=== PATIENT | female | born 1975 | race Caucasian/White ===

== ENCOUNTER → 2021-01-12 16:58 | Outpatient (CLI) | payer OTHER, SELFPAY ==
--- NOTE | 2021-01-12 17:02 | DI.MG.S_ITS ---
BILATERAL DIGITAL SCREENING MAMMOGRAM 3D/2D WITH CAD: 01/12/2021 CLINICAL: Routine screening. Comparison is made to exams dated: 11/25/2017 mammogram and 11/25/2017 ultrasound - outside. The tissue of both breasts is heterogeneously dense. This may lower the sensitivity of mammography. Current study was also evaluated with a Computer Aided Detection (CAD) system. There are benign cysts in both breasts. Multiple simple cysts are seen on 2018 ultrasound. Many of these cysts are decreased in size. No significant masses, calcifications, or other findings are seen in either breast. IMPRESSION: BENIGN There is no mammographic evidence of malignancy. Multiple bilateral cysts. A 1 year screening mammogram is recommended. This exam was interpreted at Station ID: [id number]. NOTE: For mammograms, a report in lay terms will be sent to the patient. Approximately 15% of breast malignancies will not be visualized mammographically. In the management of a palpable breast mass, a negative mammogram must not discourage biopsy of a clinically suspicious lesion. Electronically Signed By: Channing Kyle M.D. slc/:01/12/2021 17:42:04 letter sent: Normal Exam ACR BI-RADS Category 2: Benign Finding(s) 3342F
== END ==
PROVIDERS: PCP Family Medicine; Referring Provider Family Medicine; Visit Provider Family Medicine
DX: Z12.31 Encounter for screening mammogram for malignant neoplasm of breast (principal)
CPT/HCPCS: 77063; 77067

== ENCOUNTER → 2022-02-08 08:08 | Outpatient (CLI) | payer OTHER, SELFPAY ==
--- NOTE | 2022-02-08 | DI.MG.S_ITS ---
BILATERAL DIGITAL SCREENING MAMMOGRAM 3D/2D WITH CAD: 02/08/2022 CLINICAL: Routine screening. Comparison is made to exams dated: 01/12/2021 mammogram - [facility], 11/25/2017 mammogram, and 11/25/2017 ultrasound - outside. Both breasts are heterogeneously dense, which may obscure small masses (category c / 51-75% glandular tissue). Current study was also evaluated with a Computer Aided Detection (CAD) system. There are benign cysts in both breasts. No significant masses, calcifications, or other findings are seen in either breast. There has been no significant interval change. IMPRESSION: BENIGN There is no mammographic evidence of malignancy. A 1 year screening mammogram is recommended. Based on the Tyrer Cuzick model (a risk assessment model) the patient's lifetime risk is 7.7% and her 10 year risk is 1.6%. According to the ACR, ACS, and NCCN guidelines, an annual breast MRI exam along with mammogram is recommended if the patient's lifetime risk is 20% or greater. This exam was interpreted at Station ID: [id number]. NOTE: For mammograms, a report in lay terms will be sent to the patient. Approximately 15% of breast malignancies will not be visualized mammographically. In the management of a palpable breast mass, a negative mammogram must not discourage biopsy of a clinically suspicious lesion. Electronically Signed By: Edgar jackson/david:02/08/2022 13:14:44 letter sent: Normal Exam ACR BI-RADS Category 2: Benign Finding(s) 3342F
[2022-02-08 09:53] LABS: Add Manual Diff / Slide Review NO; Basophils Absolute Auto 100 /uL (0-100); Basophils Percent Auto 0.6 % (0-2); Eosinophils Absolute Auto 100 /uL (0-450); Eosinophils Percent Auto 1.3 % (2-4); Hematocrit 40.3 % (36-46); Hemoglobin 13.6 g/dL (12.0-16.0); Lymphocytes Absolute Auto 3100 /uL (1100-4500); Lymphocytes Percent Auto 27.9 % (25-40); Mean Corpuscular HGB Conc 33.7 % (30-36); Mean Corpuscular Hemoglobin 30.5 PG (26-34); Mean Corpuscular Volume 90.7 fL (80-100); Monocytes Absolute Auto 800 /uL (0-900); Monocytes Percent Auto 7.3 % (3-14); Neutrophils Absolute Auto 6900 /uL (1500-7000); Neutrophils Percent Auto 62.9 % (50-75); Platelet Count 311 X10^3/uL (150-400); Red Blood Cell Count 4.44 X10^6/uL (4.0-5.2); Red Cell Distribution Width 13.1 % (11.6-14.8)
[2022-02-08 10:10] LABS: Alanine Aminotransferase 30 IU/L (<35); Albumin 4.5 g/dL (3.5-5.0); Albumin Globulin Ratio 1.5 (1.0-2.8); Alkaline Phosphatase 59 U/L (38-126); Aspartate Aminotransferase 26 IU/L (14-36); BUN Creatinine Ratio 10.5 (6-22); Bilirubin Total 0.6 mg/dL (0.2-1.3); Blood Urea Nitrogen 9 mg/dL (7-17); Calcium 9.6 mg/dL (8.4-10.2); Carbon Dioxide 24 mmol/L (22-32); Chloride 100 mmol/L (98-107); Cholesterol 237 mg/dL (140-199); Estimated Glomerular Filt Rate > 60 mL/min (>60); Globulin 3.1 g/dL (1.7-4.1); Glucose 91 mg/dL (70-100); HDL Cholesterol 59 mg/dL (40-60); HEMOLYSIS < 15 (0-50); LDL Cholesterol Calculated 143 mg/dL (<100); Potassium 4.4 mmol/L (3.4-5.1); Sodium 136 mmol/L (137-145); Total Protein 7.6 g/dL (6.3-8.2); Triglycerides 173 mg/dL (35-150)
[2022-02-08 10:39] LABS: TSH w/ Reflex to FT4 1.83 uIU/mL (0.47-4.68)
[2022-02-08 11:20] LABS: Creatinine Urine Random 94.2 mg/dL
[2022-02-08 11:33] LABS: Microalbumi Creatinin Ratio Ur 9.5 ug/mg CR (<30); Microalbumin Urine Random 0.9 mg/dL (0-1.6)
== END ==
PROVIDERS: PCP Family Medicine; Referring Provider Family Medicine; Visit Provider Family Medicine
DX: Z12.31 Encounter for screening mammogram for malignant neoplasm of breast; Z13.220 Encounter for screening for lipoid disorders; Z12.11 Encounter for screening for malignant neoplasm of colon; I10 Essential (primary) hypertension; G47.429 Narcolepsy in conditions classified elsewhere without cataplexy; F17.200 Nicotine dependence, unspecified, uncomplicated
CPT/HCPCS: 36415; 77063; 77067; 80053; 80061; 82043; 82570; 84443; 85025

== ENCOUNTER → 2023-02-14 | Outpatient (CLI) | payer OTHER, SELFPAY ==
--- NOTE | 2023-02-14 14:35 | DI.MG.S_ITS ---
BILATERAL DIGITAL SCREENING MAMMOGRAM 3D/2D WITH CAD: 02/14/2023 CLINICAL: Routine screening. Comparison is made to exams dated: 02/08/2022 mammogram, 01/12/2021 mammogram - [facility], and 11/25/2017 mammogram - outside. Both breasts are heterogeneously dense, which may obscure small masses (category c / 51-75% glandular tissue). Current study was also evaluated with a Computer Aided Detection (CAD) system. There are benign appearing masses in both breasts. There is a calcification in the right breast posterior depth superior region seen on the mediolateral oblique view only. This is more prominent. There is a mass in the left breast at 1 o'clock posterior depth. This is more prominent. No other significant masses or calcifications are seen in either breast. IMPRESSION: INCOMPLETE: NEEDS ADDITIONAL IMAGING EVALUATION The calcification in the right breast posterior depth superior region seen on the mediolateral oblique view only is indeterminate. Additional views are recommended. The mass in the left breast at 1 o'clock posterior depth resembles a cyst and is indeterminate. Additional views with possible ultrasound are recommended. Based on the Tyrer Cuzick model (a risk assessment model) the patient's lifetime risk is 11.6% and her 10 year risk is 2.6%. According to the ACR, ACS, and NCCN guidelines, an annual breast MRI exam along with mammogram is recommended if the patient's lifetime risk is 20% or greater. This exam was interpreted at Station ID: [id number]. NOTE: For mammograms, a report in lay terms will be sent to the patient. Approximately 15% of breast malignancies will not be visualized mammographically. In the management of a palpable breast mass, a negative mammogram must not discourage biopsy of a clinically suspicious lesion. Electronically Signed By: George Chairez M.D. lc/:02/20/2023 07:54:03 letter sent: Additional Imaging Needed ACR BI-RADS Category 0: Incomplete 3340F
== END ==
LOC: MAMMO 14:34
PROVIDERS: PCP Family Medicine; Referring Provider Family Medicine; Visit Provider Family Medicine
DX: Z12.31 Encounter for screening mammogram for malignant neoplasm of breast (principal)
CPT/HCPCS: 77063; 77067

== ENCOUNTER → 2023-03-06 13:13 | Outpatient (CLI) | payer OTHER, SELFPAY ==
--- NOTE | 2023-03-06 13:14 | DI.US.S_ITS ---
ULTRASOUND OF LEFT BREAST: 03/06/2023 CLINICAL: Patient returns today to evaluate a focal asymmetry in the left breast. Comparison is made to exams dated: 03/06/2023 mammogram, 02/14/2023 mammogram, 02/08/2022 mammogram, 01/12/2021 mammogram - [facility], 11/25/2017 mammogram, and 11/25/2017 ultrasound - outside. Color flow and real-time ultrasound of the left breast were performed. Carty scale images of the real-time examination were reviewed. There is a possible 0.8 cm x 0.6 cm cluster of complicated cysts in the left breast at 3 o'clock middle depth. There also is a benign 1.6 cm x 1.2 cm x 1.4 cm cyst in the left breast at 3 o'clock anterior depth 6 cm from the nipple. This correlates with mammography findings from screening mammogram. IMPRESSION: PROBABLY BENIGN The possible 0.8 cm and 0.6 cm cluster of complicated cysts in the left breast at 3 o'clock middle depth is probably benign. Follow-up ultrasound in 6 months is recommended. The 1.6 cm x 1.2 cm x 1.4 cm cyst in the left breast at 3 o'clock anterior depth is benign corresponding to the enlarging mammographic mass, no dedicated followup needed. A follow-up RIGHT mammogram (for the calcifications, possibly milk of calcium) and a LEFT ultrasound in 6 months are recommended to demonstrate stability. This exam was interpreted at Station ID: [id number]. Electronically Signed By: George Chairez M.D. lc/:03/06/2023 15:07:12 letter sent: Followup Recommended Ultrasound BI-RADS: 3 Probably benign
--- NOTE | 2023-03-06 13:14 | DI.MG.S_ITS ---
BILATERAL DIGITAL DIAGNOSTIC MAMMOGRAM 3D/2D: 03/06/2023 CLINICAL: Additional evaluation requested from prior study. Comparison is made to exams dated: 02/14/2023 mammogram, 02/08/2022 mammogram, and 01/12/2021 mammogram - [facility]. Both breasts are heterogeneously dense, which may obscure small masses (category c / 51-75% glandular tissue). There are benign appearing masses in both breasts. There are grouped calcification in the right breast posterior depth superior region seen on the mediolateral oblique view only. This is seen in additional views. There is a mass in the left breast at 1 o'clock posterior depth. This is more prominent. No other significant masses or calcifications are seen in either breast. IMPRESSION: INCOMPLETE: NEEDS ADDITIONAL IMAGING EVALUATION The calcification in the right breast posterior depth superior region seen on the mediolateral oblique view only resembles milk of calcium and is probably benign. A follow-up mammogram in 6 months is recommended. The mass in the left breast at 1 o'clock posterior depth resembles a cyst and is indeterminate. An ultrasound is recommended. This is larger than prior and resembles the other presumed benign-appearing cysts. Based on the Tyrer Cuzick model (a risk assessment model) the patient's lifetime risk is 7.8% and her 10 year risk is 1.7%. According to the ACR, ACS, and NCCN guidelines, an annual breast MRI exam along with mammogram is recommended if the patient's lifetime risk is 20% or greater. This exam was interpreted at Station ID: [id number]. NOTE: For mammograms, a report in lay terms will be sent to the patient. Approximately 15% of breast malignancies will not be visualized mammographically. In the management of a palpable breast mass, a negative mammogram must not discourage biopsy of a clinically suspicious lesion. Electronically Signed By: George Chairez M.D. lc/:03/06/2023 15:02:36 ACR BI-RADS Category 0: Incomplete 3340F
== END ==
PROVIDERS: PCP Family Medicine; Referring Provider Family Medicine; Visit Provider Family Medicine
DX: R92.8 Other abnormal and inconclusive findings on diagnostic imaging of breast (principal); R92.1 Mammographic calcification found on diagnostic imaging of breast; N60.02 Solitary cyst of left breast
CPT/HCPCS: 76642; 77066; G0279

== ENCOUNTER → 2023-06-19 08:55 | Outpatient (CLI) | payer OTHER, SELFPAY ==
[2023-06-19 09:38] LABS: Add Manual Diff / Slide Review NO; Basophils Absolute Auto 100 /uL (0-100); Basophils Percent Auto 0.6 % (0-2); Eosinophils Absolute Auto 200 /uL (0-450); Eosinophils Percent Auto 1.8 % (2-4); Hematocrit 37.6 % (36-46); Lymphocytes Absolute Auto 2800 /uL (1100-4500); Mean Corpuscular HGB Conc 34.6 % (30-36); Mean Corpuscular Hemoglobin 31.2 PG (26-34); Mean Corpuscular Volume 90.2 fL (80-100); Monocytes Absolute Auto 700 /uL (0-900); Monocytes Percent Auto 7.4 % (3-14); Neutrophils Absolute Auto 6200 /uL (1500-7000); Neutrophils Percent Auto 62.2 % (50-75); Platelet Count 274 X10^3/uL (150-400); Red Blood Cell Count 4.17 X10^6/uL (4.0-5.2); Red Cell Distribution Width 13.4 % (11.6-14.8)
[2023-06-19 09:49] LABS: Alanine Aminotransferase 48 IU/L (<35); Albumin 4.3 g/dL (3.5-5.0); Albumin Globulin Ratio 1.2 (1.0-2.8); Alkaline Phosphatase 56 U/L (38-126); Aspartate Aminotransferase 36 IU/L (14-36); Bilirubin Total 1.1 mg/dL (0.2-1.3); Blood Urea Nitrogen 12 mg/dL (7-17); Calcium 9.4 mg/dL (8.4-10.2); Carbon Dioxide 24 mmol/L (22-32); Chloride 106 mmol/L (98-107); Cholesterol 212 mg/dL (140-199); Estimated Glomerular Filt Rate > 60 mL/min (>60); Globulin 3.6 g/dL (1.7-4.1); Glucose 98 mg/dL (70-100); HDL Cholesterol 63 mg/dL (40-60); HEMOLYSIS < 15 (0-50); LDL Cholesterol Calculated 125 mg/dL (<100); Potassium 4.3 mmol/L (3.4-5.1); Sodium 137 mmol/L (137-145); Total Protein 7.9 g/dL (6.3-8.2); Triglycerides 122 mg/dL (35-150)
[2023-06-19 10:00] LABS: Creatinine Urine Random 20.8 mg/dL
[2023-06-19 10:16] LABS: Follicle Stimulating Hormone 3.21 mIU/mL
[2023-06-19 10:19] LABS: TSH w/ Reflex to FT4 1.85 uIU/mL (0.47-4.68)
[2023-06-19 10:38] LABS: Microalbumin Urine Random < 0.6 mg/dL (0-1.6)
[2023-06-19 19:58] LABS: Hep C Virus Ab w/Reflex Quant NEGATIVE s/c (NEGATIVE)
[2023-06-21 04:17] LABS: Apolipoprotein B 112 mg/dL (<90)
== END ==
PROVIDERS: PCP Family Medicine; Referring Provider Family Medicine; Visit Provider Family Medicine
DX: I10 Essential (primary) hypertension (principal); G47.419 Narcolepsy without cataplexy; F41.9 Anxiety disorder, unspecified; F17.200 Nicotine dependence, unspecified, uncomplicated; N63.0 Unspecified lump in unspecified breast
CPT/HCPCS: 36415; 80053; 80061; 82043; 82172; 82570; 83001; 84443; 85025; 86803

== ENCOUNTER → 2023-09-26 13:31 | Outpatient (CLI) | payer OTHER, SELFPAY ==
--- NOTE | 2023-09-26 13:32 | DI.US.S_ITS ---
ULTRASOUND OF LEFT BREAST: 09/26/2023 CLINICAL: Follow up from addtional views. Comparison is made to exams dated: 09/26/2023 mammogram, 03/06/2023 ultrasound, 03/06/2023 mammogram, 02/14/2023 mammogram, and 02/08/2022 mammogram - [facility]. Color flow and real-time ultrasound of the left breast were performed on the areas of interest. There are multiple various size simple cysts in the left breast superior lateral quadrant middle depth. These simple cysts are anechoic with well-defined boundaries and posterior acoustic enhancement. These correlate with mammography findings. Color flow imaging demonstrates that there is no vascularity present. IMPRESSION: BENIGN There is no sonographic evidence of malignancy. The multiple various size simple cysts in the left breast are benign. Return to annual mammogram screening schedule is recommended. This exam was interpreted at Station ID: [id number]. Electronically Signed By: Farhana denney/:09/26/2023 14:51:43 letter sent: Normal Exam Ultrasound BI-RADS: 2 Benign
--- NOTE | 2023-09-26 13:33 | DI.MG.S_ITS ---
UNILATERAL RIGHT DIGITAL DIAGNOSTIC MAMMOGRAM 3D/2D: 09/26/2023 CLINICAL: Patient returns for a 6 month follow up of the right breast. Comparison is made to exams dated: 03/06/2023 mammogram, 02/14/2023 mammogram, 02/08/2022 mammogram, and 01/12/2021 mammogram - [facility]. The right breast is heterogeneously dense, which may obscure small masses (category c / 51-75% glandular tissue). There are grouped punctate calcifications in the right breast at 11 o'clock posterior depth. No other significant masses or calcifications are seen in the breast. IMPRESSION: INCOMPLETE: NEEDS ADDITIONAL IMAGING EVALUATION The grouped punctate calcifications in the right breast likely represent early calcification of oil cysts and are probably benign. A follow-up in 6 months is recommended. A targeted ultrasound of the left breast is recommended to evaluate a previously seen finding and will be performed immediately following this exam. Based on the Tyrer Cuzick model (a risk assessment model) the patient's lifetime risk is 7.8% and her 10 year risk is 1.8%. According to the ACR, ACS, and NCCN guidelines, an annual breast MRI exam along with mammogram is recommended if the patient's lifetime risk is 20% or greater. This exam was interpreted at Station ID: [id number]. NOTE: For mammograms, a report in lay terms will be sent to the patient. Approximately 15% of breast malignancies will not be visualized mammographically. In the management of a palpable breast mass, a negative mammogram must not discourage biopsy of a clinically suspicious lesion. Electronically Signed By: Farhana denney/:09/26/2023 14:18:39 ACR BI-RADS Category 0: Incomplete 3340F
== END ==
LOC: MAMMO 13:31
PROVIDERS: PCP Family Medicine; Referring Provider Family Medicine; Visit Provider Family Medicine
DX: R92.8 Other abnormal and inconclusive findings on diagnostic imaging of breast (principal); R92.1 Mammographic calcification found on diagnostic imaging of breast; N60.02 Solitary cyst of left breast; R92.331 Mammographic heterogeneous density, right breast; N63.0 Unspecified lump in unspecified breast; I10 Essential (primary) hypertension; F41.9 Anxiety disorder, unspecified; G47.419 Narcolepsy without cataplexy; F17.200 Nicotine dependence, unspecified, uncomplicated
CPT/HCPCS: 76642; 77065; G0279

== ENCOUNTER → 2024-04-28 13:36 | Outpatient (CLI) | payer OTHER, SELFPAY ==
[2024-04-28 14:23] LABS: COVID-19 CEPHEID 4-PLEX PCR Negative (Negative); Influenza A - CEPHEID Flu A POSITIVE (NEGATIVE); Influenza B - CEPHEID Flu B NEGATIVE (NEGATIVE); Respiratory Syncytial Virus Negative (Negative)
== END ==
PROVIDERS: PCP Family Medicine; Visit Provider Physician Assistant Surgical
DX: R05.9 Cough, unspecified (principal)
CPT/HCPCS: 0241U

== ENCOUNTER → 2024-04-28 13:45 | Outpatient (CLI) | payer OTHER, SELFPAY ==
--- NOTE | 2024-04-28 13:46 | DI.RAD.S_ITS ---
PROCEDURE: XR CHEST 2V INDICATIONS: Cough, wheeze TECHNIQUE: 2 views of the chest were acquired. COMPARISON: None. FINDINGS: Surgical changes and devices: None. Lungs and pleura: Lungs are clear. No pleural effusions or pneumothorax. Mediastinum: Mediastinal contours are normal. Heart size is normal. Bones and chest wall: No suspicious bony abnormalities. Soft tissues appear unremarkable. IMPRESSION: No acute cardiopulmonary abnormality is seen. Dictated by: Sam Alonzo M.D. on 04/28/2024 at 14:48 Approved by: Sam Alonzo M.D. on 04/28/2024 at 14:48
== END ==
PROVIDERS: PCP Family Medicine; Referring Provider Physician Assistant Surgical; Visit Provider Physician Assistant Surgical
DX: R05.9 Cough, unspecified (principal)
CPT/HCPCS: 0241U; 71046

== ENCOUNTER → 2024-07-28 10:10 | Outpatient (CLI) | payer OTHER, SELFPAY ==
--- NOTE | 2024-07-28 10:11 | DI.MG.S_ITS ---
MM diagnostic mammo BI, US breast RT limited: 07/28/2024 BI-RADS: 3 CLINICAL: 48-year old female for bilateral diagnostic mammogram and right diagnostic breast ultrasound. Tyrer-Cuzick lifetime risk of 5.3%. No personal or first-degree family history of breast cancer. The patient reports a palpable abnormality (1 month) in the right breast. PRIOR EXAMS 09/26/2023, 03/06/2023, 02/14/2023, 02/08/2022, 01/12/2021. MAMMOGRAPHY TECHNIQUE: 2D and 3D (tomosynthesis) digital mammographic views obtained, with additional images as needed for full coverage. Current study was also evaluated with a Computer Aided Detection (CAD) system. ULTRASOUND TECHNIQUE Real-time mann scale and color doppler imaging of the area of clinical interest was performed with image documentation. TARGETED Right Breast Ultrasound: Real-time ultrasound exam was performed focused to area of clinical and/or imaging concern. DENSITY C. The breasts are heterogeneously dense, which may obscure small masses. MAMMOGRAPHY FINDINGS Right: Upper Outer at 11:00, Posterior depth: There are probably-benign grouped punctate calcifications. This finding has been stable since February 2023. Right: There are multiple bilateral benign appearing round and oval circumscribed masses, waxing and waning in size. At the area of clinical palpable concern, there is a 2.0 cm oval circumscribed mass at 7 o'clock anterior depth. Left: There are multiple bilateral benign appearing round and oval circumscribed masses, waxing and waning in size. There are no suspicious masses, calcifications, or other findings in the breast. There are no suspicious masses, calcifications, or other findings in the breast. ULTRASOUND FINDINGS Right: Lower Outer at 7:00, 3.0 cm from nipple, measuring 1.8 x 1.8 x 1.9 cm: Correlating with palpable lump there is a simple cyst present. This finding is benign. IMPRESSION: Right (Calcification): Upper Outer at 11:00, Posterior depth * Probably Benign. Left * No evidence of malignancy with benign findings. RECOMMENDATIONS Right: Upper Outer at 11:00, Posterior depth * Followup with diagnostic mammography in one year (Follow up in 12 months to demonstrate over 2-year stability. Patient will be due for bilateral mammogram at that time.). COMMENTS: Findings and recommendations were conveyed to the patient during today's evaluation. OVERALL ASSESSMENT CATEGORY BI-RADS-3: Probably Benign. ELECTRONICALLY SIGNED: Cherelle Magaña M.D. on 07/28/2024 at 12:24:30 PM PT Interpreting Station ID: [id number]
== END ==
PROVIDERS: PCP Family Medicine; Referring Provider Family Medicine; Visit Provider Family Medicine
DX: R92.1 Mammographic calcification found on diagnostic imaging of breast (principal); N63.13 Unspecified lump in the right breast, lower outer quadrant; N60.01 Solitary cyst of right breast; R92.333 Mammographic heterogeneous density, bilateral breasts
CPT/HCPCS: 76642; 77066; G0279